=== PATIENT | female | born 1970 | race Caucasian/White ===

== ENCOUNTER → 2016-03-12 | Outpatient (CLI) | payer BC ==
[~2016-03-12] MED LIST: ASPI325T45 PO; ATORVASTATIN PO; BUPR-102 PO; CHOLTAB3 PO; MAGN400T6 PO; PRLSR20 PO
[2016-03-17 11:52] LABS: HERPES SIMPLEX CULT SOURCE GENITAL-VULVA; HERPES SIMPLEX VIRUS CULT NOT ISOLATED (NOT ISOLATED)
== END | disposition home or self-care (01) ==
LOC: C.LABSPEC 16:11
PROVIDERS: ATTEND Obstetrics & Gynecology
DX: N76.2 Acute vulvitis (principal)

== ENCOUNTER → 2016-05-01 | Outpatient (CLI) | payer BC ==
[~2016-05-01] VITALS: Ht 160 cm; Wt 125.5 kg
[2016-05-01 14:22] VITALS: BP 156/93; PULSE 93; Ht 160 cm; Wt 125.5 kg
== END | disposition home or self-care (01) ==
LOC: C.NEUR 13:20
PROVIDERS: ATTEND Internal Medicine Pulmonary Disease
DX: G47.33 Obstructive sleep apnea (adult) (pediatric) (principal)

== ENCOUNTER → 2016-07-15 | Outpatient (CLI) | payer BC ==
--- NOTE | 2016-07-15 16:29 | MAMMOGRAPHY REPORT ---
BILATERAL DIGITAL SCREENING MAMMOGRAM TOMOSYNTHESIS WITH CAD: 07/15/2016 CLINICAL HISTORY: Routine screening. Patient has no complaints. TECHNIQUE: Breast tomosynthesis in addition to standard 2D mammography was performed. Current study was also evaluated with a Computer Aided Detection (CAD) system. COMPARISON: Comparison is made to exams dated: 06/17/2015 mammogram, 06/12/2014 mammogram, 05/17/2013 ma mmogram, and 04/19/2012 mammogram - [facility]. BREAST COMPOSITION: There are scattered areas of fibroglandular density in both breasts. FINDINGS: No suspicious masses, calcifications, or areas of architectural distortion are noted in e ither breast. There has been no significant interval change compared to prior exams. IMPRESSION: ACR BI-RADS CATEGORY 1: NEGATIVE There is no mammographic evidence of malignancy. A 1 year screening mammogram is recommended. The p atient will receive written notification of the results. Approximately 10% of breast cancers are not detected with mammography. A negative mammographic repor t should not delay biopsy if a clinically suggestive mass is present. Stella Coronado M.D. ah/:07/15/2016 15:47:43 Mine Motor Operator: Ashtyn Benson RT(R)(M), [facility] letter sent: Normal 1/2 BI-RADS Code: ACR BI-RADS Category 1: Negative
== END | disposition home or self-care (01) ==
LOC: C.MAMM 14:45
PROVIDERS: ATTEND Internal Medicine
DX: Z12.31 Encounter for screening mammogram for malignant neoplasm of breast (principal)

== ENCOUNTER → 2017-04-01 | Outpatient (CLI) | payer OTHER | END | disposition home or self-care (01) | LOC: C.PAPS 10:19 | PROVIDERS: ATTEND Obstetrics & Gynecology | DX: Z12.4 Encounter for screening for malignant neoplasm of cervix (principal); R87.612 Low grade squamous intraepithelial lesion on cytologic smear of cervix (LGSIL) ==

== ENCOUNTER → 2017-05-03 | Outpatient (CLI) | payer OTHER | END | disposition home or self-care (01) | LOC: C.LABSPEC 17:25 | PROVIDERS: ATTEND Obstetrics & Gynecology | DX: R87.612 Low grade squamous intraepithelial lesion on cytologic smear of cervix (LGSIL) (principal) ==

== ENCOUNTER → 2017-05-06 | Outpatient (CLI) | payer OTHER ==
[~2017-05-06] VITALS: Ht 158.8 cm; Wt 125.0 kg
[2017-05-06 14:10] VITALS: BP 154/90; PULSE 101; Ht 158.8 cm; Wt 125.0 kg
== END | disposition home or self-care (01) ==
LOC: C.NEUR 13:54
PROVIDERS: ATTEND Physician Assistant
DX: G47.33 Obstructive sleep apnea (adult) (pediatric) (principal)

== ENCOUNTER → 2017-09-14 | Outpatient (CLI) | payer OTHER ==
[~2017-09-14] MED LIST changes: +ASPECOTC PO; -ASPI325T45 PO
--- NOTE | 2017-09-15 14:55 | MAMMOGRAPHY REPORT ---
BILATERAL DIGITAL SCREENING MAMMOGRAM TOMOSYNTHESIS WITH CAD: 09/14/2017 CLINICAL HISTORY: Routine screening. TECHNIQUE: The study was acquired using full field digital technology and interpreted from soft copy. Breast tomosynthesis in addition to standard 2D mammography was performed. Current study was also ev aluated with a Computer Aided Detection (CAD) system. COMPARISON: Comparison is made to exams dated: 07/15/2016 mammogram, 06/17/2015 mammogram, 06/12/2014 ma mmogram, 05/17/2013 mammogram, and 04/19/2012 mammogram - [facility]. BREAST COMPOSITION: There are scattered areas of fibroglandular density in both breasts. FINDINGS: There are stable intramammary lymph nodes in each upper outer quadrant. No suspicious mass, architectural distortion or cluster of microcalcifications is seen. IMPRESSION: ACR BI-RADS CATEGORY 1: NEGATIVE There is no mammographic evidence of malignancy. A 1 year screening mammogram is recommended.( 019) The patient will receive written notification of the results. Some breast cancers are not detected with mammography. A negative mammographic report should not isaac y biopsy if a clinically suggestive mass is present. Lois Boogie M.D. ay/:09/14/2017 15:25:30 Residential Field Manager: RT Michelle(Lorie)(M), [facility] letter sent: Normal 1/2 BI-RADS Code: ACR BI-RADS Category 1: Negative
== END ==
LOC: C.MAMM 13:12
PROVIDERS: ATTEND Internal Medicine
DX: Z12.31 Encounter for screening mammogram for malignant neoplasm of breast (principal)

== ENCOUNTER 2020-01-15 17:30 | Inpatient (IN) ==
[2020-01-15 17:55] LABS: Basophils # (auto) 0.03 K/uL (0-0.2); Basophils % (auto) 0.2 %; Eosinophils # (auto) 0.12 K/uL (0-0.5); Eosinophils % (auto) 0.8 %; Hematocrit (blood only) 42.4 % (37-47); Hemoglobin 14.3 g/dL (12.0-16.0); Immature Granulocytes # (auto) 0.07 K/uL (0.00-0.02); Immature Granulocytes % (auto) 0.4 %; Lymphocytes # (auto) 3.81 K/uL (1.2-3.4); Lymphocytes % (auto) 24.4 %; Mean Corpuscular Hemoglobin 30.6 pg (25-34); Mean Corpuscular Hgb Conc 33.7 g/dL (32-36); Mean Corpuscular Volume 90.6 fL (80-100); Mean Platelet Volume 9.4 fL (7.4-10.4); Monocytes # (auto) 0.55 K/uL (0.11-0.59); Monocytes % (auto) 3.5 %; Neutrophils # (auto) 11.06 K/uL (1.4-6.5); Neutrophils % (auto) 70.7 %; Platelet Count 361 K/uL (130-400); RDW Coefficient of Variation 12.7 % (11.5-14.5); RDW Standard Deviation 41.8 fL (36.4-46.3); Red Blood Count 4.68 M/uL (4.2-5.4); White Blood Count 15.64 K/uL (4.8-10.8)
[2020-01-15 18:05] LABS: Partial Thromboplastin Ratio 1.1; Partial Thromboplastin Time 29.9 Seconds (21.0-31.0); Prothrombin Time 10.4 Seconds (9.0-12.0)
[2020-01-15 18:13] LABS: Albumin Level 3.9 gm/dl (3.4-5.0); BUN Creatinine Ratio 14.5 (10-20); Calcium 9.5 mg/dl (8.5-10.1); Creatinine Clr Calc Pharmacy 111.7 ml/min; Est GFR (African American) 98.1; Est GFR (Non-African American) 84.6; Potassium 3.6 mmol/L (3.5-5.1)
--- NOTE | 2020-01-15 18:20 | XRay Report ---
XR chest 1V portable HISTORY: Atypical Chest Pain COMPARISON: None. FINDINGS: The lungs are clear. Cardiac silhouette is normal in size. No pleural effusions. No pneumot horax. IMPRESSION: No acute process. ACT 112: Negative or not required by law. Electronically signed by: Parveen Callejas M.D. 01/15/2020 6:19 PM
[2020-01-15] MEDS ORDERED: ASPIRIN 81 MG CHEW PO STA (18:23)
[2020-01-15 18:24] LABS: Albumin Globulin Ratio 0.9 (0.9-2); Bilirubin,Total 0.4 mg/dl (0.2-1); Globulin 4.2 gm/dl (2.5-4.0); Total Protein 8.1 gm/dl (6.4-8.2); Troponin I 5.17 ng/ml (0-0.045)
--- NOTE | 2020-01-15 18:32 | Emergency Department Note ---
Impression & Plan Chest pain, Non-ST elevation DE (NSTEMI) ED Provider Note Provider: Smith Collins MD DATE OF SERVICE:01/15/2020 CHIEF COMPLAINT: Chest pain HISTORY OF PRESENT ILLNESS: Patient is a 49-year-old female history of COPD, GERD, hyperlipidemia presenting today with complaints of some chest discomfort starting around 8 AM while at rest this morning. Pain in the upper back and mid chest. But shortness of breath at times. Denies abdominal pain or nausea. Denies low back pain to me. Denies trauma. States drinking vision change symptoms too much. She denies a history of somewhat similar pain. Took some Gas-X which did not help with Tylenol that did not help either. Later took some Tums and it improved things. Initially went to urgent care referred here told her EKG was okay here but came here for further evaluation per their recommendation. Patient states initially she had 4-10 chest pain when she arrived but upon my evaluation in the room at approximately 6:18 PM patient sta teri she has 1 out of 10 slight chest discomfort very minimal. States he feels a bit anxious and just want to be sure nothing was okay and she thinks this is just her stomach and anxiety working up. Denies recent travel. Denies recent fever or URI symptoms. Does not normally take aspirin. Pain was not really pleuritic and denies movement or exertion really changed her pain. Was able to go to the store today and walk around and pain was sort of constant all day. REVIEW OF SYSTEMS: A total of 10 review of systems was obtained and negative except as stated above in the HPI. PAST MEDICAL HISTORY: As noted above MEDICATIONS: Reviewed medications with the patient. 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 NECK: Trachea midline. LUNGS: Airway patent. No retractions. Breath sounds clear with good air entry bilaterally. HEART: Regular rate and rhythm. No chest wall tenderness ABDOMEN: Soft and non-tender, without guarding or rebound. SKIN: Acyanotic, warm, dry, without rashes EXTREMITIES: Without swelling, tenderness or deformity with some healing port sites in the right upper shoulder with some slight tenderness but no evidence of significant swelling or erythema here. NEUROLOGICAL: No focal deficits. No aphasia. No facial droop or slurred speech. EK bpm normal sinus without PVC or PAC. There is some slight lateral ST depression as well as inferior ST depressions noted with question of some subtle ST elevation in V1 and V2. New compared to previous from November 15 of this year. EK bpm sinus tachycardia without PVC or PAC. No acute ST segment elevation is noted with some slight inferior ST flattening compared to previous appears somewhat improved regarding the ST segment CONTINUOUS CARDIAC MONITORING: was ordered and showed a heart rate of 112 bpm in sinus tachycardia Patient's laboratory studies and imaging reviewed. Differential includes Cardiac ischemia, aortic dissection, pulmonary embolism, pneumothorax, pneumonia, pericarditis, myocarditis, esophageal rupture, GERD, cholecystitis, pancreatitis, musculoskeletal, as well as other pathologies. IMPRESSION/MEDICAL DECISION MAKING: Patient presents with upper chest pain with some radiation to the upper back present for most of the day. Initially seen in urgent care with reportedly a normal EKG and referred here for further care. Upon my initial evaluation of the patient due to the activity department saw the patient about 6:18 PM and noted first EKG with some concerning changes. Patient states now she had very minimal symptoms at 1 out of 10. Basic lab work was returning at that time and the chest x-ray is being performed as I entered the room. Chest x-ray without evidence of pneumothorax or pneumonia. I doubt this is PE given the clinical history. Doubt dissection given the clinical history. Blood pressure is improving on reassessment here. Lower suspicion for coronavirus at this point. No significant right upper quadrant tenderness and doubt cholecystitis or significant intra-abdominal pathology. Given the concerning EKG a repeat was ordered and she was ordered aspirin. Repeat EKG showed improvement of ischemic findings but discussed with cardiology given story and the initial EKG as well as a elevated troponin of 5. In discussion with of cardiology although the patient's having significant improvement of symptoms compared to earlier, felt that proceeding with emergent cardiac catheterization was warranted given the troponin and EKG changes that been occurring. Per his recommendation heparin bolus and Brilinta was given. The patient was updated. Weight Recorder personnel arrived and patient was taken to the Weight Recorder for further care. DIAGNOSIS: NSTEMI, chest pain DISPOSITION: Taken to the Weight Recorder for further care. Critical Care I have personally spent 31 minutes of critical care time in the direct management of this patient. This includes bedside care, interpretation of diagnostic studies, and testing, discussion with consultants, patient, and family members, and other required patient management activities. These 31 minutes is in excess of all separately billable procedures. Past Med/Surg History Medical History (Updated 01/15/20 @ 18:56 by Smith Collins M.D.) Anxiety Asthma well controlled Depression GERD (gastroesophageal reflux disease) Hyperlipidemia Morbid obesity Pre-diabetes Sleep apnea CPAP Surgical History (Updated 11/28/19 @ 09:33 by Mario Alvarez PA-C) H/O arthroscopy of left knee 02/05/15- Dr. Solorzano History of endometrial ablation History of hysterectomy History of myringotomy WITH TUBES History of tonsillectomy Status post trigger finger release right thumb November 2014- Dr. Sun [place] teeth extracted Family History Grandfather (Maternal) Myocardial infarction Prostate cancer Grandmother (Paternal) Uterine cancer Family/Other Hypertension Father Lung cancer COPD (chronic obstructive pulmonary disease) Emphysema lung Asthma Hypertension Aunt Diabetes Grandmother (Maternal) Diabetes Uncle Prostate cancer Grandfather (Paternal) Stomach cancer Liver cancer Denies family history of Ovarian cancer Breast cancer Colorectal cancer Social History Smoking Status: Former smoker Age Started Using Tobacco: 20; Age Quit Using Tobacco: 45; packs per day: 2.5; Second Hand Exposure: Yes; Hx Alcohol Use: Yes Alcohol type: beer, wine and hard liquor Hx Substance Use: No Preferred Language: Maori Communication Ability: Effective 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 [employer] Runners Required: No Beliefs That Will Affect Care: None marital status: Current Living Situation: Family current occupational status: employed Feels Safe at Home: Yes Dental Care, Regularly: Yes Physical Activity Frequency: Does not Exercise Seatbelt Use: always Sunscreen Use: Yes Assistive Devices: Glasses Allergies Allergies Allergy/AdvReac Type Severity Reaction Status Date / Time azithromycin AdvReac Mild gi symptoms Verified 12/26/19 11:54 Home Meds Home Medications Medication Instructions Recorded Confirmed melatonin 3 mg tablet 10 mg PO HS PRN tab 11/29/18 12/26/19 Amberan 1 cap PO QAM 10/30/19 12/26/19 Breo Ellipta 1 puffs INH QAM 10/30/19 12/26/19 Emergen-C 1,000 ea PO QAM 10/30/19 12/26/19 Hair, Skin, Nails with Biotin 1 tab PO PM 10/30/19 12/26/19 [place] Oil 1 cap PO QAM 10/30/19 12/26/19 apple cider vinegar 600 mg PO PM 10/30/19 12/26/19 chlorhexidine gluconate 15 ml MUCOUS MEMBRANE BID PRN 10/30/19 12/26/19 cholecalciferol (vitamin D3) 125 mcg PO QAM 10/30/19 12/26/19 [Vitamin D3] cranberry 400 mg PO QAM 10/30/19 12/26/19 magnesium 400 mg PO QAM 10/30/19 12/26/19 omeprazole 20 mg PO QAM 10/30/19 12/26/19 rosuvastatin 40 mg PO PM 10/30/19 12/26/19 Previous Rx's Medication Instructions Recorded bupropion HCl 300 mg 24 hr tablet, 300 mg PO QAM #90 tab 05/12/19 extended release oxycodone-acetaminophen [Percocet] 1 tab PO Q6H PRN #30 tab 11/16/19 buspirone 7.5 mg tablet 7.5 mg PO BID #180 tab 12/12/19 Results & Data (ED) Vital Signs Vital Signs - 24 hr 01/15/20 17:31 01/15/20 18:29 01/15/20 18:54 Temperature 36.7 C Temperature Source Oral Pulse Rate 91 H 115 H Pulse Rate [Left Finger] 100 H 108 H Respiratory Rate 20 15 20 Respiratory Effort / Characteristics Non-Labored Respiratory Depth Normal Blood Pressure 188/109 H 152/114 H Blood Pressure [Left Arm] 150/93 H 152/114 H Blood Pressure Mean 135 120 Blood Pressure Mean [Left Arm] 112 126 Pulse Oximetry 95 100 96 Oxygen Delivery Method Room Air Sepsis Recent Fever Within 48 Hours No Sepsis New/Unexplained Change in Mental Status No Sepsis Action Taken by Nursing No Action Required 01/15/20 19:07 Temperature Temperature Source Pulse Rate 106 H Pulse Rate [Left Finger] Respiratory Rate 20 Respiratory Effort / Characteristics Respiratory Depth Blood Pressure Blood Pressure [Left Arm] Blood Pressure Mean Blood Pressure Mean [Left Arm] Pulse Oximetry Oxygen Delivery Method Sepsis Recent Fever Within 48 Hours Sepsis New/Unexplained Change in Mental Status Sepsis Action Taken by Nursing Laboratory Data Result diagrams: 01/15/20 17:47 01/15/20 17:47 Lab Results 01/15/20 01/15/20 01/15/20 Range/Units 17:47 17:47 17:47 WBC 15.64 H (4.8-10.8) K/uL RBC 4.68 (4.2-5.4) M/uL Hgb 14.3 (12.0-16.0) g/dL Hct 42.4 (37-47) % MCV 90.6 (80-100) fL MCH 30.6 (25-34) pg MCHC 33.7 (32-36) g/dL RDW Std Deviation 41.8 (36.4-46.3) fL RDW Coeff of Asa 12.7 (11.5-14.5) % Plt Count 361 (130-400) K/uL MPV 9.4 (7.4-10.4) fL Immature Gran % (Auto) 0.4 % Neut % (Auto) 70.7 % Lymph % (Auto) 24.4 % [place] % (Auto) 3.5 % Eos % (Auto) 0.8 % Baso % (Auto) 0.2 % Neut # (Auto) 11.06 H (1.4-6.5) K/uL Lymph # (Auto) 3.81 H (1.2-3.4) K/uL [place] # (Auto) 0.55 (0.11-0.59) K/uL Eos # (Auto) 0.12 (0-0.5) K/uL Baso # (Auto) 0.03 (0-0.2) K/uL Immature Gran # (Auto) 0.07 H (0.00-0.02) K/uL PT 10.4 (9.0-12.0) Seconds INR 1.0 (0.9-1.1) APTT 29.9 (21.0-31.0) Seconds PTT Ratio 1.1 Activ Coag Time Kaolin (94-140) SECONDS Sodium 138 (136-145) mmol/L Potassium 3.6 (3.5-5.1) mmol/L Chloride 103 (98-107) mmol/L Carbon Dioxide 29 (21-32) mmol/L Anion Gap 5.0 (3-11) BUN 12 (7-18) mg/dl Creatinine 0.82 (0.6-1.2) mg/dl Est Cr Clr Drug Dosing 111.7 ml/min Est GFR ( Amer) 98.1 Est GFR (Non-Af Amer) 84.6 BUN/Creatinine Ratio 14.5 (10-20) Glucose 129 H (70-99) mg/dl Calcium 9.5 (8.5-10.1) mg/dl Total Bilirubin 0.4 (0.2-1) mg/dl AST 32 (15-37) U/L ALT 30 (12-78) U/L Alkaline Phosphatase 105 (45-117) U/L Troponin I 5.170 H* (0-0.045) ng/ml Total Protein 8.1 (6.4-8.2) gm/dl Albumin 3.9 (3.4-5.0) gm/dl Globulin 4.2 H (2.5-4.0) gm/dl Albumin/Globulin Ratio 0.9 (0.9-2) Lipase 144 (73-393) U/L COVID-19 Eval Order SARS-CoV-2, RNA, NAAT (NEGATIVE) 01/15/20 01/15/20 01/15/20 Range/Units 18:51 18:51 20:06 WBC (4.8-10.8) K/uL RBC (4.2-5.4) M/uL Hgb (12.0-16.0) g/dL Hct (37-47) % MCV (80-100) fL MCH (25-34) pg MCHC (32-36) g/dL RDW Std Deviation (36.4-46.3) fL RDW Coeff of Asa (11.5-14.5) % Plt Count (130-400) K/uL MPV (7.4-10.4) fL Immature Gran % (Auto) % Neut % (Auto) % Lymph % (Auto) % [place] % (Auto) % Eos % (Auto) % Baso % (Auto) % Neut # (Auto) (1.4-6.5) K/uL Lymph # (Auto) (1.2-3.4) K/uL [place] # (Auto) (0.11-0.59) K/uL Eos # (Auto) (0-0.5) K/uL Baso # (Auto) (0-0.2) K/uL Immature Gran # (Auto) (0.00-0.02) K/uL PT (9.0-12.0) Seconds INR (0.9-1.1) APTT (21.0-31.0) Seconds PTT Ratio Activ Coag Time Kaolin 235 H (94-140) SECONDS Sodium (136-145) mmol/L Potassium (3.5-5.1) mmol/L Chloride (98-107) mmol/L Carbon Dioxide (21-32) mmol/L Anion Gap (3-11) BUN (7-18) mg/dl Creatinine (0.6-1.2) mg/dl Est Cr Clr Drug Dosing ml/min Est GFR ( Amer) Est GFR (Non-Af Amer) BUN/Creatinine Ratio (10-20) Glucose (70-99) mg/dl Calcium (8.5-10.1) mg/dl Total Bilirubin (0.2-1) mg/dl AST (15-37) U/L ALT (12-78) U/L Alkaline Phosphatase (45-117) U/L Troponin I (0-0.045) ng/ml Total Protein (6.4-8.2) gm/dl Albumin (3.4-5.0) gm/dl Globulin (2.5-4.0) gm/dl Albumin/Globulin Ratio (0.9-2) Lipase (73-393) U/L COVID-19 Eval Order Covid19 [facility]Now [facility] SARS-CoV-2, RNA, NAAT NEGATIVE (NEGATIVE) Administered Medications Discontinued Medications Aspirin (Aspirin 81 Mg Chew) 324 mg PO NOW STA Stop: 01/15/20 18:24 Last Admin: 01/15/20 18:32 Dose: 324 mg Documented by: [id number] Fentanyl Citrate (Fentanyl Citrate 100 Mcg/2 Ml Vial) Confirm Administered Dose 100 mcg .ROUTE .STPrice Squid-MED ONE Stop: 01/15/20 18:59 Last Admin: 01/15/20 20:21 Dose: 100 mcg Documented by: [id number] Heparin Sodium (Porcine) (Heparin Sod (Porcine) 1000 Unit/Ml 10 Ml Vial) 5,000 units IV ONE ONE Stop: 01/15/20 18:36 Last Admin: 01/15/20 18:41 Dose: 5,000 units Documented by: [id number] Cosigned by: [id number] Heparin Sodium (Porcine) (Heparin (Porcine) 1000 Unit/Ml 10 Ml (Weight Recorder Use Only)) Confirm Administered Dose 10,000 units .ROUTE .STK-MED ONE Stop: 01/15/20 18:58 Last Admin: 01/15/20 20:21 Dose: 9,000 units Documented by: [id number] Heparin Sodium/Sodium Chloride (Heparin In Nss Infusion 1000 Unit/500 Ml (2 U/Ml) Bag) Confirm Administered Dose 3,000 units IV .STK-MED ONE Stop: 01/15/20 18:59 Last Admin: 01/15/20 20:21 Dose: 3,000 units Documented by: [id number] Midazolam HCl (Midazolam Hcl 1 Mg/Ml 2ml Vial) Confirm Administered Dose 2 mg .ROUTE .STK-MED ONE Stop: 01/15/20 18:58 Last Admin: 01/15/20 20:21 Dose: 2 mg Documented by: [id number] Midazolam HCl (Midazolam Hcl 1 Mg/Ml 2ml Vial) Confirm Administered Dose 2 mg .ROUTE .STK-MED ONE Stop: 01/15/20 20:09 Last Admin: 01/15/20 20:21 Dose: 1 mg Documented by: [id number] Nicardipine HCl (Nicardipine Hcl Inj 2.5 Mg/Ml 10 Ml Amp) Confirm Administered Dose 25 mg .ROUTE .STK-MED ONE Stop: 01/15/20 18:58 Last Admin: 01/15/20 20:20 Dose: 25 mg Documented by: [id number] Nitroglycerin/Dextrose (Nitroglycerin/D5w 100mcg/Ml 20ml Syr) Confirm Administered Dose 2,000 mcg .ROUTE .STK-MED ONE Stop: 01/15/20 18:59 Last Admin: 01/15/20 20:21 Dose: 2,000 mcg Documented by: [id number] Ticagrelor (Ticagrelor 90 Mg Tab) 180 mg PO ONE STA Stop: 01/15/20 18:36 Last Admin: 01/15/20 18:41 Dose: 180 mg Documented by: [id number] Discharge Plan Visit Data Chief Complaint: Chest Pain Stated Complaint: CHEST PAIN ED Provider: Karina,Smith T Discharge Problem: Chest pain, Non-ST elevation DE (NSTEMI) Patient Disposition: Admitted As Inpatient Discharge Instructions Interventions: ED Discharge Assessment Last Done: 01/15/20 19:15 Discharge Problem: Chest pain Qualifiers: Chest pain type: chest pain due to myocardial ischemia Ischemic chest pain type: unspecified angina pectoris type Qualified Code(s): I25.9 - Chronic ischemic heart disease, unspecified
[2020-01-15] MEDS ORDERED: HEPARIN SOD (PORCINE) 1000 UNIT/ML 10 ML VIAL IV ONE (18:35)
[2020-01-15] MEDS ORDERED: TICAGRELOR 90 MG TAB PO STA (18:35)
[2020-01-15] MEDS ORDERED: MIDAZOLAM HCL 1 MG/ML 2ML VIAL ONE ×2 (18:57→20:08)
[2020-01-15] MEDS ORDERED: niCARdipine HCL INJ 2.5 MG/ML 10 ML AMP ONE (18:57)
[2020-01-15] MEDS ORDERED: HEPARIN (PORCINE) 1000 UNIT/ML 10 ML (CATH LAB USE ONLY) ONE (18:57)
[2020-01-15] MEDS ORDERED: NITROGLYCERIN/D5W 100MCG/ML 20ML SYR ONE (18:58)
[2020-01-15] MEDS ORDERED: fentaNYL citrate 100 MCG/2 ML VIAL ONE (18:58)
--- NOTE | 2020-01-15 19:17 | Pre Anesthesia Assessment ---
Date of Service January 15, 2020 Pre Sedation Assessment Vital Signs Temp Pulse Pulse Resp BP BP Pulse Ox 01/15/20 19:07 106 H 20 01/15/20 18:54 115 H 108 H 20 152/114 H 152/114 H 96 01/15/20 18:29 100 H 15 150/93 H 100 01/15/20 17:31 98.1 F 91 H 20 188/109 H 95 Cardiovascular RRR, no murmur, no edema Respiratory normal respiratory effort, lungs clear to auscultation Pre-Sedation Airway Assessment Smoking Status: Former smoker Hx Sleep Apnea: No Hx Difficult Intubation: No Short, Thick Neck: No Thyromental Distance: > or= 3.5 Finger Breadths Oral Cavity: + WNL Mallampati Class: III ASA: ASA3 Procedure Planning Contraindications for Sedation: none Current Medications Reviewed: Yes Notes The planned sedation has been discussed with the patient. Informed Consent was obtained. I have identified the patient, determined the appropriateness of sedation and have assessed the patient immediately prior to the procedure. All medicine(s) and interventions are by my order.
--- NOTE | 2020-01-15 19:24 | Cardiology Consultation ---
Date of Consultation January 15, 2020 Assessment & Plan (1) Non-ST elevation AR (NSTEMI): Presentation consistent with high risk NSTEMI. With initial subtle anterior elevations on ECG and ongoing chest pain recommend proceeding with urgent cardiac catheterization and likely primary PCI. No apparent contraindications to procedure. Discussed risks, benefits, alternatives of procedure with patient and they are willing to proceed. Given IV heparin and ticagrelor 180 mg in the ED. Further recommendations pending findings of coronary angiography. History of Present Illness History of Present Illness 49-year-old woman here with acute chest pain elevated troponin, abnormal ECG concerning for ACS. Patient seen emergently in the ED after heart alert activated after second ECG and persistent pain. No prior cardiac history. Cardiac risk factors include dyslipidemia, prediabetes, obesity and prior tobacco use. Other medical issues include GERD, asthma, obstructive sleep apnea, depression. Had recent right shoulder surgery. Chest pain began approximately 8 AM while at rest this morning. Pain radiated to her back and was intermittent throughout the day. The pain was her reflux although felt very different than prior discomfort. Initially presented to urgent care before referred to ED. Upon arrival here hypertensive to the 180s. Initial EKG showed subtle anterior ST elevations in V1, V2. Subsequent ECG improved. Troponin elevated at 5. Continue to have 102 chest pain. 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 Quit tobacco 4 years ago. Denies heavy alcohol Allergies Allergy/AdvReac Type Severity Reaction Status Date / Time azithromycin AdvReac Mild gi symptoms Verified 12/26/19 11:54 Home Medications Medication Instructions Recorded Confirmed Type melatonin 3 mg tablet 10 mg PO HS PRN tab 11/29/18 12/26/19 History bupropion HCl 300 mg 24 hr tablet, 300 mg PO QAM #90 tab 05/12/19 12/26/19 Rx extended release Amberan 1 cap PO QAM 10/30/19 12/26/19 History Breo Ellipta 1 puffs INH QAM 10/30/19 12/26/19 History Emergen-C 1,000 ea PO QAM 10/30/19 12/26/19 History Hair, Skin, Nails with Biotin 1 tab PO PM 10/30/19 12/26/19 History [place] Oil 1 cap PO QAM 10/30/19 12/26/19 History apple cider vinegar 600 mg PO PM 10/30/19 12/26/19 History chlorhexidine gluconate 15 ml MUCOUS MEMBRANE BID PRN 10/30/19 12/26/19 History cholecalciferol (vitamin D3) 125 mcg PO QAM 10/30/19 12/26/19 History [Vitamin D3] cranberry 400 mg PO QAM 10/30/19 12/26/19 History magnesium 400 mg PO QAM 10/30/19 12/26/19 History omeprazole 20 mg PO QAM 10/30/19 12/26/19 History rosuvastatin 40 mg PO PM 10/30/19 12/26/19 History oxycodone-acetaminophen [Percocet] 1 tab PO Q6H PRN #30 tab 11/16/19 12/26/19 Rx buspirone 7.5 mg tablet 7.5 mg PO BID #180 tab 12/12/19 12/26/19 Rx Patient History Medical History (Updated 01/15/20 @ 18:56 by Smith Collins M.D.) Anxiety Asthma well controlled Depression GERD (gastroesophageal reflux disease) Hyperlipidemia Morbid obesity Pre-diabetes Sleep apnea CPAP Surgical History (Updated 11/28/19 @ 09:33 by Mario Alvarez PA-C) H/O arthroscopy of left knee 02/05/15- Dr. Solorzano History of endometrial ablation History of hysterectomy History of myringotomy WITH TUBES History of tonsillectomy Status post trigger finger release right thumb November 2014- Dr. Sun [place] teeth extracted Family History Grandfather (Maternal) Myocardial infarction Prostate cancer Grandmother (Paternal) Uterine cancer Family/Other Hypertension Father Lung cancer COPD (chronic obstructive pulmonary disease) Emphysema lung Asthma Hypertension Aunt Diabetes Grandmother (Maternal) Diabetes Uncle Prostate cancer Grandfather (Paternal) Stomach cancer Liver cancer Denies family history of Ovarian cancer Breast cancer Colorectal cancer Social History Smoking Status: Former smoker Age Started Using Tobacco: 20; Age Quit Using Tobacco: 45; packs per day: 2.5; Second Hand Exposure: Yes; Hx Alcohol Use: Yes Alcohol type: beer, wine and hard liquor Hx Substance Use: No Preferred Language: French Communication Ability: 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 Beliefs That Will Affect Care: None marital status: Current Living Situation: Family current occupational status: employed Feels Safe at Home: Yes Dental Care, Regularly: Yes Physical Activity Frequency: Does not Exercise Seatbelt Use: always Sunscreen Use: Yes Assistive Devices: Glasses Review of Systems Review of Systems: Not completed in the setting of emergent situation Physical Exam Physical Exam: General: Anxious HEENT: Sclerae anicteric, mucous membranes moist Lungs: Clear to auscultation bilaterally Cardiac: Tachycardic, regular Abdomen: Soft, nontender Extremities: Warm, well perfused, no edema. 2+ radial pulses Skin: No rashes or lesions. Neuro: Nonfocal Psych: Alert orient x3, normal affect and mood Results & Data ([facility]) Vital Signs (Past 12 Hours) Vital Signs Temp Pulse Pulse Resp BP BP Pulse Ox 01/15/20 19:07 106 H 20 01/15/20 18:54 115 H 108 H 20 152/114 H 152/114 H 96 01/15/20 18:29 100 H 15 150/93 H 100 01/15/20 17:31 98.1 F 91 H 20 188/109 H 95 PG Care Time/CCT Total # of Minutes Spent Total Time Spent with Patient: Total time spent is greater than 50% in coordination of care (as documented) at patient's floor/unit and/or counseling patient: Coding Level of Care Code 76901 Inpt Consult Level 5 Diagnoses Non-ST elevation AR (NSTEMI) I21.4
--- NOTE | 2020-01-15 19:27 | Cardiac Catheterization ---
[facility] Data: [place] [employer] Cardiac Status Clinical evaluation leading to the procedure CAD Presenation: Non STEMI Anginal Classification: CCS IV Heart Failure: No Cardiogenic Shock within 24 Hours: No Cardiac Arrest within 24 Hours: No Imaging Studies Past 6 Months: No Stress Studies Past 6 Months: No Diagnostic Physicians Name: David Ortega MD Status: Urgent Closure Device Percutaneous Entry Location: Radial Closure Device: Radial Band Recommendations: PCI without planned CABG PCI Indication: PCI for high risk Non-KATIA Lesion Segment Name: Proximal LAD Culprit Artery: Yes Stenosis Prior to Rx (%): 95 Chronic Total Occlusion: No IVUS: Yes FFR: No Pre-Procedure CHAN Flow: 2 Previously Treated Lesion: No Lesion Complexity: Non-High/Non-C Lesion Length (mm): 20 Thrombus Present: Yes Bifurcation Lesion: No Guidewire Across Lesion: Stenosis Post-Procedure (%): 0 Post-Procedure CHAN Flow: 3 Devices(s) Deployed: Yes Yes Intraprocedure Events Significant Disection: No Perforation: No Cardiac Cath Procedure Full Procedure Date January 15, 2020 Pre-Procedure Diagnosis Pre-Procedure Diagnosis: Non STEMI AUC Score AUC Score: 8 Post-Procedure Diagnosis Post-Procedure Diagnosis: Severe CAD, Successful PCI and Elevated Intracardiac Pressures Procedure(s) Performed Procedure(s) Performed: Coronary Angiography, Left Heart Cath, Drug Eluting Stent and IVUS Oracle Financial Application Developer David Ortega MD Chef De Cuisine(s) Valeria Estimated Blood Loss Estimated Blood Loss: 15 Medication(s) Medication(s): Fentanyl, Heparin, Lidocaine 1%, Nicardipine, Nitroglycerin and Versed Medication(s): Ticagrelor Summary of Findings Indication: High risk NSTEMI Access: 6 Fr slender right radial artery Catheters: [place], JR4, EBU 3.5 guide Findings: LM -large caliber, luminal irregularities LAD -95% acute, long proximal stenosis midsegment with luminal irregularities, distal vessel tapers prior to apex. Large first diagonal without significant disease. Circumflex -30% ostial stenosis, large high OM1 without significant disease. Mid to distal circumflex without significant disease. RCA -dominant, large caliber, 40% proximal, 30 to 40% mid distal luminal regularities. Large PDA, PLB without significant disease. LVEDP -28 -- PCI -- Antithrombotic therapy: Heparin, ticagrelor Procedure: Left main cannulated with EBU 3.5 guide BMW wire passed across lesion into distal vessel Ruffin IVUS used to assess extent of calcification, length of disease and for vessel sizing. Pullback revealed severe, minimally calcified disease with thrombus extending from near ostium almost to takeoff of D1 (MLA 2.1 mm). Proximal LAD lesion predilated with 2.5 compliant balloon Dilated lesion stented with 3.5 x 22 mm [place] drug-eluting stent Stent post-dilated with 4.0 noncompliant balloon IC vasodilators administered for spasm Repeat IVUS showed well apposed stent, underexpanded in the midsegment. Stent repostdilated with 4.5 NC. Post procedure CHAN 3 flow, stent well expanded with minimal residual stenosis and no apparent cardiac complications. Arterial Closure: TR band Summary: 1. Severe single vessel coronary artery disease -Long 95% acute proximal LAD stenosis 2. Mild to moderate nonculprit CAD 30% ostial circumflex 40% proximal RCA, 30 to 40% mid RCA 3. Elevated intracardiac filling pressure 4. Successful PCI of proximal LAD with single drug-eluting stent (3.5 x 22 mm [place]; postdilated with 4.5 NC). Recommendations: To PCU for continued monitoring Trend troponin until peak, echocardiogram in the a.m. Loaded with ticagrelor 180 mg in [place] [employer] Continue dual-antiplatelet therapy for at least 1 year Continue statin, and ASCVD risk factor modification Consult cardiac Rehab Hemodynamics Rest Ao:: 147/96/120 Final Ao: 136/91/120 LV: 138/28 Recommendations Recommendations: PCI without planned CABG Specimens Specimens: None Radiation Exposure (mGy) 4045 Contrast (mls) 145 Fluids (cc crystalloids) Fluids (cc crystalloids): 194 Drains Drains: None Anesthesia Moderate Procedural Complication(s) None Disposition PCU I attest to the content of the Intraoperative Record and any orders documented therein. Any exceptions are noted below. [facility] Card Cath Procedure Codes Cardiac Catheterization Procedure 1: Cardiovascular Cath Procedures: 42862 Coronaries and LHC (+/-LV) Therapeutic Services & Ancillary Proc Procedure 1: Cardiovascular Tx and Anc Procedures: 50012 IV Ultrasound (Coronary or Graft) Moderate Sedation Procedure 1: Sedation/Anesthesia: 25295 Mod Sedation by the same physician;Init15 Min Child Age 5 & Up Procedure 2: Sedation/Anesthesia: 53070 Mod Sedation by the same physician; Ea [id number] Minutes Stenting Procedure 1: Cardiovascular Stent Procedures: 79297 Perc transcatheter placement of intracoronary stent(s), with ang PG Care Time/CCT Total # of Minutes Spent Total Time Spent with Patient: Total time spent is greater than 50% in coordination of care (as documented) at patient's floor/unit and/or counseling patient:
[2020-01-15] MEDS ORDERED: ACETAMINOPHEN 325 MG TAB PO PRN (20:41)
[2020-01-15] MEDS ORDERED: ONDANSETRON INJ 2 MG/ML 2 ML VIAL IV PRN (20:41)
[2020-01-15] MEDS ORDERED: NITROGLYCERIN SL 0.4 MG/TAB TAB SL PRN (20:41)
[2020-01-15] MEDS ORDERED: lisinopril 5 MG TAB PO SCH (20:45)
[2020-01-15] MEDS ORDERED: METOPROLOL TARTRATE 25 MG TAB PO SCH (21:00)
[2020-01-15] MEDS ORDERED: INFLUENZA VACCINE HIGH DOSE 65+ 0.7 ML SYR IM ONE (21:16)
[2020-01-15] MEDS ORDERED: INFLUENZA ADMINISTRATION CHARGE ONE (21:16)
[2020-01-15] MEDS: ROSUVASTATIN CALCIUM 20 MG TAB PO SCH (22:02)
[2020-01-16] MEDS ORDERED: POTASSIUM CHLORIDE / WTR 10 MEQ/100 ML PLCT IV STA (00:29)
[2020-01-16] MEDS ORDERED: MAGNESIUM SULFATE / D5W 1 GM/100 ML BAG IV ONE (00:29)
[2020-01-16] MEDS ORDERED: SODIUM CHLORIDE 0.9% 1000ML 1,000 ML IV SCH ×2 (00:30→02:00)
[2020-01-16] MEDS ORDERED: ONDANSETRON INJ 2 MG/ML 2 ML VIAL IV STA (00:33)
[2020-01-16] MEDS: POTASSIUM CHLORIDE / WTR 10 MEQ/100 ML PLCT IV SCH ×2 (00:53→01:50)
[2020-01-16] MEDS ORDERED: MELATONIN 3 MG TAB PO PRN (01:05)
[2020-01-16 01:08] LABS: BUN Creatinine Ratio 13.4 (10-20); Calcium 9.2 mg/dl (8.5-10.1); Creatinine Clr Calc Pharmacy 110.6 ml/min; Est GFR (African American) 98.1; Est GFR (Non-African American) 84.6; Magnesium 1.9 mg/dl (1.8-2.4); Potassium 3.9 mmol/L (3.5-5.1)
--- NOTE | 2020-01-16 01:10 | History & Physical Report ---
Date of Service January 16, 2020 Assessment & Plan (1) Non-ST elevation SD (NSTEMI): NSTEMI-patient did require a single drug-eluting stent in the LAD, and was then admitted to telemetry. Post cardiac cath orders per Dr. Ortega included metoprolol tartrate 25 mg p.o. twice daily and lisinopril. Laboratories ordered for the morning Present on Admission?: Yes (2) Obstructive sleep apnea of adult: CPAP at at bedtime as needed Present on Admission?: Yes (3) Prediabetes: On no specific treatment at this time. If her blood sugar is elevated on routine morning labs, will add Accu-Cheks and coverage Present on Admission?: Yes (4) Hypercholesterolemia: Place on high-dose statin, rosuvastatin 40 mg daily in the evening Present on Admission?: Yes (5) GERD without esophagitis: Continue omeprazole 20 mg every morning Present on Admission?: Yes (6) Depression with anxiety: Continue buspirone and bupropion Present on Admission?: Yes (7) Asthma: Continue Breo Ellipta Present on Admission?: Yes (8) Right shoulder pain: Right shoulder pain/AC joint arthritis- Present on Admission?: Yes Admission and Anticipated Discharge Date Admission Date: January 15, 2020 History of Present Illness Chief Complaint: The patient developed acute onset of substernal chest discomfort at 8:00 this morning while at rest, was then seen at a walk-in clinic, who reported she had a normal EKG, but advised that she come to the ED for assessment Primary Care Provider: David Burks MD The patient is a 49-year-old female with a past medical history including morbid obesity, MEL, VAIN I, mood disturbance, prediabetes, hypercholesterolemia, GERD without esophagitis, depression with anxiety, asthma, aortic regurgitation, chronic right shoulder pain, and AC joint arthritis. After arrival to the ED, patient was found to have a troponin of 5, ischemic changes on EKG and chest pain that did improve somewhat but not did not resolve, and after discussion with Dr. Ortega of interventional cardiology, a heart alert was called and patient was taken for emergent cath. Allergies Allergy/AdvReac Type Severity Reaction Status Date / Time azithromycin AdvReac Mild gi symptoms Verified 12/26/19 11:54 Home Medications Medication Instructions Recorded Confirmed Type melatonin 3 mg tablet 10 mg PO HS PRN tab 11/29/18 01/15/20 History bupropion HCl 300 mg 24 hr tablet, 300 mg PO QAM #90 tab 05/12/19 01/15/20 Rx extended release Amberan 1 cap PO QAM 10/30/19 01/15/20 History Breo Ellipta 1 puffs INH QAM 10/30/19 01/15/20 History Emergen-C 1,000 ea PO QAM 10/30/19 01/15/20 History Hair, Skin, Nails with Biotin 1 tab PO PM 10/30/19 01/15/20 History [place] Oil 1 cap PO QAM 10/30/19 01/15/20 History apple cider vinegar 600 mg PO PM 10/30/19 01/15/20 History chlorhexidine gluconate 15 ml MUCOUS MEMBRANE BID PRN 10/30/19 01/15/20 History cholecalciferol (vitamin D3) 125 mcg PO QAM 10/30/19 01/15/20 History [Vitamin D3] cranberry 400 mg PO QAM 10/30/19 01/15/20 History magnesium 400 mg PO QAM 10/30/19 01/15/20 History omeprazole 20 mg PO QAM 10/30/19 01/15/20 History rosuvastatin 40 mg PO PM 10/30/19 01/15/20 History buspirone 15 mg PO QAM 01/15/20 01/15/20 History Past Med/Surg History Medical History (Updated 01/15/20 @ 18:56 by Smith Collins M.D.) Anxiety Asthma well controlled Depression GERD (gastroesophageal reflux disease) Hyperlipidemia Morbid obesity Pre-diabetes Sleep apnea CPAP Surgical History (Updated 11/28/19 @ 09:33 by Mario Alvarez PA-C) H/O arthroscopy of left knee 02/05/15- Dr. Solorzano History of endometrial ablation History of hysterectomy History of myringotomy WITH TUBES History of tonsillectomy Status post trigger finger release right thumb November 2014- Dr. Sun [place] teeth extracted Family History Grandfather (Maternal) Myocardial infarction Prostate cancer Grandmother (Paternal) Uterine cancer Family/Other Hypertension Father Lung cancer COPD (chronic obstructive pulmonary disease) Emphysema lung Asthma Hypertension Aunt Diabetes Grandmother (Maternal) Diabetes Uncle Prostate cancer Grandfather (Paternal) Stomach cancer Liver cancer Denies family history of Ovarian cancer Breast cancer Colorectal cancer Social History Smoking Status: Former smoker Age Started Using Tobacco: 20; Age Quit Using Tobacco: 45; packs per day: 2.5; Smoking End Date: 2015; Second Hand Exposure: Yes; Hx Alcohol Use: Yes Alcohol type: wine and hard liquor Hx Substance Use: No Preferred Language: French Communication Ability: Effective Safety Intern Required: No Beliefs That Will Affect Care: None marital status: Current Living Situation: Family current occupational status: employed Other Information That Helps Us Care for You: No Feels Safe at Home: Yes Safety Concerns: Feels Safe At This Time Dental Care, Regularly: Yes Physical Activity Frequency: Does not Exercise Seatbelt Use: always Sunscreen Use: Yes Assistive Devices: CPAP and Glasses Review of Systems Review of Systems: The patient denies palpitations, cough, lower extremity swelling, sore throat, fevers, chills, sweats, nausea, vomiting, diarrhea , constipation, abdominal pain, pelvic pain, blood in urine or stool, dysuria, urinary frequency or urgency, lightheadedness, dizziness, headache, memory loss, loss of consciousness, rash, abnormal bruising or bleeding, imbalance, focal or generalized weakness, numbness or tingling in arms or legs, generalized arthralgias or myalgias, neck pain, or night sweats. The review of systems is otherwise negative other than for that already noted above, and at least 10 systems have been reviewed. Physical Exam 2 Physical Exam: The patient is awake, alert and oriented 3, well developed and well nourished, normocephalic and atraumatic, lying in bed and in no acute distr ess. HEENT--PERRL, EOMI, mucous membranes and oropharynx dry. Neck--supple. No JVD. No bruits. Thyroid normal, trachea midline, no adenopathy. Heart--normal S1 and S2. No murmurs, rubs or gallops. Lungs--clear bilaterally, no respiratory distress, no accessory muscle use. Abdomen--normal bowel sounds and soft. Nontender. Nondistended. Extremities--no cyanosis or clubbing. No edema. There are good distal pulses b/l. Dermatologic--normal skin turgor, normal color, no abnormal lymph nodes, no rash. Neurologic--cranial nerves II through XII grossly intact. Rheumatologic--normal range of motion. Psychiatric--normal affect. Results & Data Results & Data ([facility]) Vital Signs (Past 12 Hours) Vital Signs Temp Pulse Pulse Resp BP BP Pulse Ox 01/16/20 00:43 98.6 F 83 18 131/88 95 01/15/20 23:42 98.6 F 77 18 105/74 94 01/15/20 22:45 98.8 F 84 20 116/81 94 01/15/20 22:15 85 20 121/74 96 01/15/20 22:10 99.0 F 88 20 168/100 H 96 01/15/20 21:25 98.6 F 93 H 18 124/82 94 01/15/20 21:06 98.6 F 90 16 106/75 94 01/15/20 20:55 90 20 170/110 H 95 01/15/20 20:40 89 20 139/82 94 01/15/20 19:07 106 H 20 01/15/20 18:54 115 H 108 H 20 152/114 H 152/114 H 96 01/15/20 18:29 100 H 15 150/93 H 100 01/15/20 17:31 98.1 F 91 H 20 188/109 H 95 Laboratory Results Laboratory Results WBC 18.54 K/uL (4.8-10.8) H 01/16/20 00:30 RBC 4.48 M/uL (4.2-5.4) 01/16/20 00:30 Hgb 13.8 g/dL (12.0-16.0) 01/16/20 00:30 Hct 41.1 % (37-47) 01/16/20 00:30 MCV 91.7 fL (80-100) 01/16/20 00:30 MCH 30.8 pg (25-34) 01/16/20 00:30 MCHC 33.6 g/dL (32-36) 01/16/20 00:30 RDW Std Deviation 42.9 fL (36.4-46.3) 01/16/20 00:30 RDW Coeff of Asa 12.8 % (11.5-14.5) 01/16/20 00:30 Plt Count 405 K/uL (130-400) H 01/16/20 00:30 MPV 10.1 fL (7.4-10.4) 01/16/20 00:30 Immature Gran % (Auto) 0.3 % 01/16/20 00:30 Neut % (Auto) 58.2 % 01/16/20 00:30 Lymph % (Auto) 35.4 % 01/16/20 00:30 [place] % (Auto) 5.0 % 01/16/20 00:30 Eos % (Auto) 0.9 % 01/16/20 00:30 Baso % (Auto) 0.2 % 01/16/20 00:30 Neut # (Auto) 10.79 K/uL (1.4-6.5) H 01/16/20 00:30 Lymph # (Auto) 6.56 K/uL (1.2-3.4) H 01/16/20 00:30 [place] # (Auto) 0.92 K/uL (0.11-0.59) H 01/16/20 00:30 Eos # (Auto) 0.17 K/uL (0-0.5) 01/16/20 00:30 Baso # (Auto) 0.04 K/uL (0-0.2) 01/16/20 00:30 Immature Gran # (Auto) 0.06 K/uL (0.00-0.02) H 01/16/20 00:30 PT 10.4 Seconds (9.0-12.0) 01/15/20 17:47 INR 1.0 (0.9-1.1) 01/15/20 17:47 APTT 29.9 Seconds (21.0-31.0) 01/15/20 17:47 PTT Ratio 1.1 01/15/20 17:47 Activ Coag Time Kaolin 235 SECONDS (94-140) H 01/15/20 20:06 Sodium 139 mmol/L (136-145) 01/16/20 00:30 Potassium 3.9 mmol/L (3.5-5.1) 01/16/20 00:30 Chloride 106 mmol/L (98-107) 01/16/20 00:30 Carbon Dioxide 27 mmol/L (21-32) 01/16/20 00:30 Anion Gap 6.0 (3-11) 01/16/20 00:30 BUN 11 mg/dl (7-18) 01/16/20 00:30 Creatinine 0.82 mg/dl (0.6-1.2) 01/16/20 00:30 Est Cr Clr Drug Dosing 110.6 ml/min 01/16/20 00:30 Est GFR ( Amer) 98.1 01/16/20 00:30 Est GFR (Non-Af Amer) 84.6 01/16/20 00:30 BUN/Creatinine Ratio 13.4 (10-20) 01/16/20 00:30 Glucose 139 mg/dl (70-99) H 01/16/20 00:30 Calcium 9.2 mg/dl (8.5-10.1) 01/16/20 00:30 Magnesium 1.9 mg/dl (1.8-2.4) 01/16/20 00:30 Total Bilirubin 0.4 mg/dl (0.2-1) 01/15/20 17:47 AST 32 U/L (15-37) 01/15/20 17:47 ALT 30 U/L (12-78) 01/15/20 17:47 Alkaline Phosphatase 105 U/L (45-117) 01/15/20 17:47 Total Creatine Kinase 1620 U/L (26-192) H 01/16/20 00:30 CK-MB (CK-2) 141.7 ng/ml (0.5-3.6) H 01/16/20 00:30 CK/CKMB % Calc 8.7 (0-3.0) H 01/16/20 00:30 Troponin I 30.300 ng/ml (0-0.045) H* 01/16/20 00:30 Total Protein 8.1 gm/dl (6.4-8.2) 01/15/20 17:47 Albumin 3.9 gm/dl (3.4-5.0) 01/15/20 17:47 Globulin 4.2 gm/dl (2.5-4.0) H 01/15/20 17:47 Albumin/Globulin Ratio 0.9 (0.9-2) 01/15/20 17:47 Lipase 144 U/L (73-393) 01/15/20 17:47 COVID-19 [facility] 01/15/20 18:51 SARS-CoV-2, RNA, NAAT NEGATIVE (NEGATIVE) 01/15/20 18:51 Code Status & VTE Plan Code Status Full code VTE Prophylaxis Plan VTE Prophylaxis will be ordered: Yes PG Care Time/CCT Total # of Minutes Spent Total Time Spent with Patient: Total time spent is greater than 50% in coordination of care (as documented) at patient's floor/unit and/or counseling patient: Coding Level of Care Code 31147 OBS Care - Level 3 Diagnoses Non-ST elevation SD (NSTEMI) I21.4 Obstructive sleep apnea of adult G47.33 Prediabetes R73.03 Hypercholesterolemia E78.00 GERD without esophagitis K21.9 Depression with anxiety F41.8 Asthma J45.909 Right shoulder pain M25.511
[2020-01-16 01:26] LABS: Creatine Kinase MB 141.7 ng/ml (0.5-3.6); Troponin I 30.3 ng/ml (0-0.045)
[2020-01-16 01:46] LABS: Hematocrit (blood only) 41.1 % (37-47); Hemoglobin 13.8 g/dL (12.0-16.0); Mean Corpuscular Hemoglobin 30.8 pg (25-34); Mean Corpuscular Volume 91.7 fL (80-100); Mean Platelet Volume 10.1 fL (7.4-10.4); Platelet Count 405 K/uL (130-400); RDW Coefficient of Variation 12.8 % (11.5-14.5); RDW Standard Deviation 42.9 fL (36.4-46.3); Red Blood Count 4.48 M/uL (4.2-5.4); White Blood Count 18.54 K/uL (4.8-10.8)
[2020-01-16] MEDS ORDERED: ICU PROTOCOL FOR HYPERGLYCEMIA PRN (01:55)
[2020-01-16] MEDS ORDERED: ATROPINE SULFATE 0.1 MG/ML 10ML SYR IV STA (01:56)
--- NOTE | 2020-01-16 01:59 | Critical Care Consultation ---
Date of Consultation January 16, 2020 Assessment & Plan (1) Admitted to intensive care unit: Reason Critically Ill: 49-year-old female status post PTCA with JOSE ALFREDO x1 to the LAD in the setting of suspicious ACS findings in the emergency department. Patient with symptomatic bradycardia requiring close hemodynamic monitoring in the ICU. NEURO - * CAM ICU: NEGATIVE * Anxiety/depression * Continue home medications as prescribed. CARDIAC/VASCULAR - * NSTEMI w/ concerns for ACS - s/p PTCA w/ JOSE ALFREDO x1 to the LAD * Without chest pain after procedure. * A.m. echocardiogram ordered. * ASCVD Rx per typical. * Symptomatic bradycardia: * Transient episode with heart rate in the 40s and systolic blood pressures in the 70s. Patient reports feeling presyncopal. No precipitating events noted. * Responded well to IV fluids alone. * Patient did receive initial dose of metoprolol this evening. Patient likely experienced a vagal event with prolonged episode in combination with new medication. * Continue to monitor in the ICU for any dysrhythmias. * Monitor on telemetry. RESPIRATORY - * h/o MEL/Asthma - * Continue w/ home BiPAP settings at night. * Supplemental O2 PRN GI/NUTRITION - * h/o GERD * Continue home Rx RENAL/LYTES - * No significant electrolyte derangements. * IVF: NSS@80mL/hr - * No concerns at this time. ENDO - * No h/o DM or Thyroid Dz * BSGs per unit protocol. ISS --> gtt per unit policy. HEME - * Stable H&H ID - * No concerns for infectious contribution at this time. * COVID-19 Negative LINES/IV ACCESS - * PIVs x2 DVT PROPHYLAXIS - * Hold s/p Heparin/Brilinta * SCDs Thank you for allowing us to participate in the care of this patient. Please refer to my attending physician's documentation for any further recommendations. (2) Symptomatic bradycardia: (3) Non-ST elevation HI (NSTEMI): (4) Chest pain: (5) S/P PTCA (percutaneous transluminal coronary angioplasty): (6) S/P drug eluting coronary stent placement: (7) Morbid obesity: (8) Obstructive sleep apnea of adult: (9) Prediabetes: (10) Hypercholesterolemia: (11) Depression with anxiety: (12) GERD without esophagitis: (13) Asthma: Supervising Physician Co-Signing Physician Notes Patient seen and examined. I agree with JEFF Dobbs note aside for any additions/exceptions noted: Continue usual post NSTEMI care. Echocardiogram completed this morning per Dr. Ortega suggest an EF of 35 to 40%. Dr. Abdi suspects that her ejection fraction will rebound with time. We are going to restart her metoprolol this morning and a lower dose. We are discontinuing IV fluids. She was unable to tolerate the CPAP mask last night. She is going to ask her family to bring in her CPAP mask from home. She notes she has a history of asthma and apparently had a PFT in the past. I am not able to follow-up with PFT in our record. She quit smoking several years ago. She notes that she has been trying to lose weight, but recently had a shoulder surgery and was starting to gain weight again. She has not checked her weight in some time. We discussed weight loss strategies and I encouraged exercise as well. I think she will be stable to be transferred out of the ICU to telemetry later today. History of Present Illness Attending Physician: Pritesh Stallings MD History of Present Illness Patient is a 49-year-old female with a significant past medical history of depression, GERD, hyperlipidemia, MEL, COPD, and obesity who presented to the emergency department this afternoon with complaints of chest discomfort. The patient initially describes her symptoms as similar to heartburn. Initial symptoms were at 8 AM. She took multiple medications without significant relief. She did consult with her sister who works in healthcare and she was directed to a local urgent care for evaluation. Upon assessment there, the patient was directed to the emergency department for further evaluation management. Patient's initial EKG showed some slight ST depressions without significant ST elevation noted. Her chest pressure significantly decreased without intervention while in the emergency department. Troponin was found to be greater than 5. In consultation with cardiology, and given ongoing clinical symptoms concerning for anginal equivalent, the patient was taken to the catheterization suite where she underwent emergent PTCI with findings consistent with a 95% occluded LAD. Patient received 1 drug-eluting stent to the LAD without complication. Patient was completely symptom-free after stenting. Around 1 AM, the patient reportedly became bradycardic and hypotensive. Maribel lo was called to the patient's room. She received IV fluid bolus and was subsequently brought to the ICU for further evaluation management. Electrolytes were being replaced in the process. Upon arrival in the ICU, the patient is awake, alert, and oriented. Heart rate is now in the 80s. Blood pressure has responded appropriately. She denies any return of symptoms which resulted in her presenting to the emergency department. Specifically, the patient denies any complaints of headaches, dizziness, lightheadedness, chest pain, palpitations, shortness of breath, pleuritic pain, abdominal pain, or numbness/weakness to the extremities. She does complain of some slight nausea at this time. Allergies Allergy/AdvReac Type Severity Reaction Status Date / Time azithromycin AdvReac Mild gi symptoms Verified 12/26/19 11:54 Home Medications Medication Instructions Recorded Confirmed Type melatonin 3 mg tablet 10 mg PO HS PRN tab 11/29/18 01/15/20 History bupropion HCl 300 mg 24 hr tablet, 300 mg PO QAM #90 tab 05/12/19 01/15/20 Rx extended release Amberan 1 cap PO QAM 10/30/19 01/15/20 History Breo Ellipta 1 puffs INH QAM 10/30/19 01/15/20 History Emergen-C 1,000 ea PO QAM 10/30/19 01/15/20 History Hair, Skin, Nails with Biotin 1 tab PO PM 10/30/19 01/15/20 History [place] Oil 1 cap PO QAM 10/30/19 01/15/20 History apple cider vinegar 600 mg PO PM 10/30/19 01/15/20 History chlorhexidine gluconate 15 ml MUCOUS MEMBRANE BID PRN 10/30/19 01/15/20 History cholecalciferol (vitamin D3) 125 mcg PO QAM 10/30/19 01/15/20 History [Vitamin D3] cranberry 400 mg PO QAM 10/30/19 01/15/20 History magnesium 400 mg PO QAM 10/30/19 01/15/20 History omeprazole 20 mg PO QAM 10/30/19 01/15/20 History rosuvastatin 40 mg PO PM 10/30/19 01/15/20 History buspirone 15 mg PO QAM 01/15/20 01/15/20 History Patient History Medical History (Updated 01/16/20 @ 03:01 by Florian Dobbs PA-C) Anxiety Asthma well controlled Depression GERD (gastroesophageal reflux disease) Hyperlipidemia Morbid obesity Pre-diabetes Sleep apnea CPAP Surgical History (Updated 01/16/20 @ 03:01 by Florian Dobbs PA-C) H/O arthroscopy of left knee 02/05/15- Dr. Solorzano History of endometrial ablation History of hysterectomy History of myringotomy WITH TUBES History of tonsillectomy Status post trigger finger release right thumb November 2014- Dr. Sun [place] teeth extracted Family History Grandfather (Maternal) Myocardial infarction Prostate cancer Grandmother (Paternal) Uterine cancer Family/Other Hypertension Father Lung cancer COPD (chronic obstructive pulmonary disease) Emphysema lung Asthma Hypertension Aunt Diabetes Grandmother (Maternal) Diabetes Uncle Prostate cancer Grandfather (Paternal) Stomach cancer Liver cancer Denies family history of Ovarian cancer Breast cancer Colorectal cancer Social History Smoking Status: Former smoker Age Started Using Tobacco: 20; Age Quit Using Tobacco: 45; packs per day: 2.5; Smoking End Date: 2015; Second Hand Exposure: Yes; Hx Alcohol Use: Yes Alcohol type: wine and hard liquor Hx Substance Use: No Preferred Language: Maltese Communication Ability: Effective Plaster Caster Required: No Beliefs That Will Affect Care: None marital status: Current Living Situation: Family current occupational status: employed Other Information That Helps Us Care for You: No Feels Safe at Home: Yes Safety Concerns: Feels Safe At This Time Dental Care, Regularly: Yes Physical Activity Frequency: Does not Exercise Seatbelt Use: always Sunscreen Use: Yes Assistive Devices: CPAP and Glasses Review of Systems Review of Systems: A complete 10 point review of systems was reviewed with the patient with pertinent positives and negatives as per history of present illne ss. All else were negative. Physical Exam Physical Exam: VITAL SIGNS - Vital signs and nursing notes were reviewed. GENERAL - 49-year-old female appearing her stated age who is in no acute distress. Communicates well with provider and answers questions appropriately. HEAD - NC/AT. EYES - PERRL with EOMI bilaterally. Sclera anicteric. Palpebral conjunctiva pink and moist with no injection noted. EARS - No deformities of external structures noted on gross examination bilaterally. NOSE - Midline and without cyanosis. No epistaxis or purulent drainage noted. MOUTH/OROPHARYNX - Without perioral cyanosis. Buccal mucosa pink and moist and without leukoplakia. Good dentition noted. NECK - Neck with FROM. Supple to palpation. LUNGS - Chest wall symmetric without accessory muscle use, intercostals retractions, or central cyanosis. Normal vesicular breath sounds CTA B/L. No wheezes, rales, or rhonchi appreciated. CARDIAC - RRR with S1/S2. No murmur, rubs, or gallops appreciated. No reproducible tenderness to palpation appreciated over the anterior chest wall. ABDOMEN - Abdominal contour obese without pulsations or visible masses. BS normoactive all four quadrants. No tenderness, palpable masses, hepatosplenomegaly, or ascites noted. EXTREMITIES - No clubbing or peripheral cyanosis. No pretibial edema present. +3/5 radial and dorsalis pedis pulses palpated throughout. +5/5 strength noted in UE/LE bilaterally. NEUROLOGIC - Cranial nerves II through XII grossly intact. Sensory intact to light touch throughout. PSYCH - A&Ox3 and cooperates fully with examiner. Pt is very pleasant and interacts well with examiner. Results & Data Results & Data ([facility]) Vital Signs (Past 12 Hours) Vital Signs Temp Pulse Pulse Resp BP BP Pulse Ox 01/16/20 01:30 86 18 147/101 H 95 01/16/20 00:55 79 17 127/88 96 01/16/20 00:50 85 18 123/88 97 01/16/20 00:45 83 16 132/95 96 01/16/20 00:43 37.0 C 83 18 131/88 95 01/15/20 23:42 37.0 C 77 18 105/74 94 01/15/20 22:45 37.1 C 84 20 116/81 94 01/15/20 22:15 85 20 121/74 96 01/15/20 22:10 37.2 C 88 20 168/100 H 96 01/15/20 21:25 37.0 C 93 H 18 124/82 94 01/15/20 21:06 37.0 C 90 16 106/75 94 01/15/20 20:55 90 20 170/110 H 95 01/15/20 20:40 89 20 139/82 94 01/15/20 19:07 106 H 20 01/15/20 18:54 115 H 108 H 20 152/114 H 152/114 H 96 01/15/20 18:29 100 H 15 150/93 H 100 01/15/20 17:31 36.7 C 91 H 20 188/109 H 95 Coding Level of Care Code 57997 Inpt Consult Level 5 Diagnoses Admitted to intensive care unit Z78.9 Symptomatic bradycardia R00.1 Non-ST elevation HI (NSTEMI) I21.4 Chest pain I25.9 Chest pain type: chest pain due to myocardial ischemia Ischemic chest pain type: unspecified angina pectoris type S/P PTCA (percutaneous transluminal coronary angioplasty) Z98.61 S/P drug eluting coronary stent placement Z95.5 Morbid obesity E66.01 Obstructive sleep apnea of adult G47.33 Prediabetes R73.03 Hypercholesterolemia E78.00 Depression with anxiety F41.8 GERD without esophagitis K21.9 Asthma J45.909 Time Spent (min) 45 (1) Chest pain Chest pain type: chest pain due to myocardial ischemia Ischemic chest pain type: unspecified angina pectoris type Qualified Code(s): I25.9 - Chronic ischemic heart disease, unspecified
[2020-01-16 02:16] LABS: Mean Corpuscular Hgb Conc 33.6 g/dL (32-36)
[2020-01-16 02:28] LABS: Basophils # (auto) 0.04 K/uL (0-0.2); Basophils % (auto) 0.2 %; Eosinophils # (auto) 0.17 K/uL (0-0.5); Eosinophils % (auto) 0.9 %; Immature Granulocytes # (auto) 0.06 K/uL (0.00-0.02); Immature Granulocytes % (auto) 0.3 %; Lymphocytes # (auto) 6.56 K/uL (1.2-3.4); Lymphocytes % (auto) 35.4 %; Monocytes # (auto) 0.92 K/uL (0.11-0.59); Neutrophils # (auto) 10.79 K/uL (1.4-6.5); Neutrophils % (auto) 58.2 %
[2020-01-16 05:35] LABS: Basophils # (auto) 0.03 K/uL (0-0.2); Basophils % (auto) 0.2 %; Eosinophils # (auto) 0.12 K/uL (0-0.5); Eosinophils % (auto) 0.7 %; Hematocrit (blood only) 42.1 % (37-47); Hemoglobin 14.1 g/dL (12.0-16.0); Immature Granulocytes # (auto) 0.06 K/uL (0.00-0.02); Immature Granulocytes % (auto) 0.4 %; Lymphocytes # (auto) 3.55 K/uL (1.2-3.4); Lymphocytes % (auto) 21.7 %; Mean Corpuscular Hemoglobin 30.8 pg (25-34); Mean Corpuscular Hgb Conc 33.5 g/dL (32-36); Mean Corpuscular Volume 91.9 fL (80-100); Mean Platelet Volume 9.6 fL (7.4-10.4); Monocytes # (auto) 0.72 K/uL (0.11-0.59); Monocytes % (auto) 4.4 %; Neutrophils # (auto) 11.89 K/uL (1.4-6.5); Neutrophils % (auto) 72.6 %; Platelet Count 392 K/uL (130-400); RDW Coefficient of Variation 12.9 % (11.5-14.5); RDW Standard Deviation 43.1 fL (36.4-46.3); Red Blood Count 4.58 M/uL (4.2-5.4); White Blood Count 16.37 K/uL (4.8-10.8)
[2020-01-16 05:56] LABS: Calcium 8.6 mg/dl (8.5-10.1); Creatinine Clr Calc Pharmacy 124.3 ml/min; Est GFR (African American) 112.9; Est GFR (Non-African American) 97.4; Magnesium 2.3 mg/dl (1.8-2.4); Potassium 4.1 mmol/L (3.5-5.1)
[2020-01-16 06:00] LABS: Phosphorus 2.9 mg/dl (2.5-4.9)
[2020-01-16 06:13] LABS: Estimated Average Glucose 108 mg/dl; Hemoglobin A1C 5.4 % (4.5-5.6)
[2020-01-16] MEDS: FLUTICASONE/VILANTEROL 200/25MCG 14 PUFFS/INHALER INH SCH (08:06)
[2020-01-16] MEDS: MAGNESIUM OXIDE 400 MG TAB PO SCH (08:07)
[2020-01-16] MEDS: buPROPion XL 300 MG TABCR PO SCH (08:07)
[2020-01-16] MEDS: PANTOprazole 40 MG TAB PO SCH (08:07)
[2020-01-16] MEDS: CHOLECALCIFEROL 1,000 UNITS 25 MCG TAB PO SCH (08:07)
[2020-01-16] MEDS: busPIRone 7.5 MG TAB PO SCH (08:07)
[2020-01-16] MEDS: ASPIRIN 81 MG ECTAB PO SCH (08:07)
[2020-01-16] MEDS: TICAGRELOR 90 MG TAB PO SCH ×2 (08:08→21:33)
--- NOTE | 2020-01-16 08:23 | XCELERA ---
[id number] \\[id number]_Reports\[id number]
[2020-01-16] MEDS ORDERED: NON-FORMULARY MEDICATION (Omeprazole 20 mg capsule,delayed release(DR/EC)) PO SCH (09:00)
--- NOTE | 2020-01-16 09:00 | Hospitalist Progress Note ---
Date of Service January 16, 2020 Assessment & Plan (1) Non-ST elevation UT (NSTEMI): NSTEMI-patient did require a single drug-eluting stent in the LAD, and was then admitted to telemetry. 2. Moderate LV dysfunction with LAD distribution wall motion abnormality 3. Transient bradycardia/hypotensionlikely vagal episode 4. Dyslipidemia 5. MEL Patient chest pain-free this morning. Troponin peaking No additional bradycardia/hypotension following event around 1 AM yesterday. Description of event sounds vagal in nature Moderate LV dysfunction on echo No signs of heart failure on exam No access site complications. Continue DAPT with aspirin, ticagrelor Start low-dose beta-nelia, MCKAY Continue current statin Appreciate input from cardio. will transfer out of ICU. (2) Obstructive sleep apnea of adult: CPAP at at bedtime as needed (3) Prediabetes: On no specific treatment at this time. If her blood sugar is elevated on routine morning labs, will add Accu-Cheks and coverage (4) Hypercholesterolemia: Place on high-dose statin, rosuvastatin 40 mg daily in the evening (5) GERD without esophagitis: Continue omeprazole 20 mg every morning (6) Depression with anxiety: Continue buspirone and bupropion (7) Asthma: Continue Breo Ellipta (8) Right shoulder pain: Right shoulder pain/AC joint arthritis- Admission and Anticipated Discharge Date Admission Date: January 15, 2020 Subjective Patient reports feeling well. She has no new complaints at this time. Review of Systems Review of Systems: All systems reviewed & are unremarkable except as noted in HPI & below Physical Exam Physical Exam: The patient is awake, alert and oriented 3, well developed and well nourished, normocephalic and atraumatic, lying in bed and in no acute distress. HEENT--PERRL, EOMI, mucous membranes and oropharynx dry. Neck--supple. No JVD. No bruits. Thyroid normal, trachea midline, no adenopathy. Heart--normal S1 and S2. No murmurs, rubs or gallops. Lungs--clear bilaterally, no respiratory distress, no accessory muscle use. Abdomen--normal bowel sounds and soft. Nontender. Nondistended. Extremities--no cyanosis or clubbing. No edema. There are good distal pulses b/l. Dermatologic--normal skin turgor, normal color, no abnormal lymph nodes, no rash. Neurologic--cranial nerves II through XII grossly intact. Rheumatologic--normal range of motion. Psychiatric--normal affect. Results & Data Results & Data ([facility]) Vital Signs (Past 12 Hours) Vital Signs Temp Pulse Pulse Resp BP BP Pulse Ox 01/16/20 08:04 85 16 108/62 92 01/16/20 08:01 36.8 C 01/16/20 06:00 80 24 105/84 99 01/16/20 05:00 82 14 116/82 98 01/16/20 04:00 37.3 C 79 18 125/77 98 01/16/20 03:00 80 16 111/72 98 01/16/20 02:07 85 16 96 01/16/20 02:00 79 21 114/78 93 01/16/20 01:30 86 18 147/101 H 95 01/16/20 00:55 79 17 127/88 96 01/16/20 00:50 85 18 123/88 97 01/16/20 00:45 83 16 132/95 96 01/16/20 00:43 37.0 C 83 18 131/88 95 01/15/20 23:42 37.0 C 77 18 105/74 94 01/15/20 22:45 37.1 C 84 20 116/81 94 01/15/20 22:15 85 20 121/74 96 01/15/20 22:10 37.2 C 88 20 168/100 H 96 01/15/20 21:25 37.0 C 93 H 18 124/82 94 01/15/20 21:06 37.0 C 90 16 106/75 94 PG Care Time/CCT Total # of Minutes Spent Total Time Spent with Patient: Total time spent is greater than 50% in coordination of care (as documented) at patient's floor/unit and/or counseling patient: Coding Level of Care Code 33109 Subseq Hosp Care Lvl 2 Diagnoses Non-ST elevation UT (NSTEMI) I21.4 Obstructive sleep apnea of adult G47.33 Prediabetes R73.03 Hypercholesterolemia E78.00 GERD without esophagitis K21.9 Depression with anxiety F41.8 Asthma J45.909 Right shoulder pain M25.511
--- NOTE | 2020-01-16 09:09 | Cardiology Progress Note ---
Date of Service January 16, 2020 Assessment & Plan (1) Non-ST elevation MA (NSTEMI): Post PCI with single JOSE ALFREDO to proximal LAD 2. Moderate LV dysfunction with LAD distribution wall motion abnormality 3. Transient bradycardia/hypotensionlikely vagal episode 4. Dyslipidemia 5. MEL Patient chest pain-free this morning. Troponin peaking No additional bradycardia/hypotension following event around 1 AM yesterday. Description of event sounds vagal in nature Moderate LV dysfunction on echo No signs of heart failure on exam No access site complications. Continue DAPT with aspirin, ticagrelor Start low-dose beta-nelia, MCKAY Continue current statin From a cardiac standpoint okay with transfer to telemetry today. Possible discharge tomorrow. Admission and Anticipated Discharge Date Admission Date: January 15, 2020 Subjective Episode of bradycardia, hypotension with associated nausea, diaphoresis overnight. No recurrent chest pain. Transferred to ICU. Responded to IV fluids. This morning feeling well. No chest pain, or shortness of breath. Tele reviewed -- no additional events. Echo reviewed -- EF~40%. LAD distribution wall motion abnormality Review of Systems Review of Systems: All systems reviewed & are unremarkable except as noted in HPI & below Physical Exam Physical Exam: General: Comfortable, no acute distress Eyes: Sclerae anicteric, extraocular movements intact HENT: Oropharynx clear mucous membranes moist Lungs: Clear to auscultation bilaterally, no rhonchi or wheezes Cardiac: Regular rate and rhythm, no murmurs Abdomen: Soft, nontender, nondistended, positive bowel sounds. Neuro: Nonfocal Psych: Alert orient x3, normal affect and mood Extremities/Vascular: --Right radial artery access site with no ecchymosis, hematoma. Distal pulse and sensation intact. -- No edema Results & Data ([facility]) Vital Signs (Past 12 Hours) Vital Signs Temp Pulse Pulse Resp BP BP Pulse Ox 01/16/20 08:04 85 16 108/62 92 01/16/20 08:01 98.2 F 01/16/20 06:00 80 24 105/84 99 01/16/20 05:00 82 14 116/82 98 01/16/20 04:00 99.1 F 79 18 125/77 98 01/16/20 03:00 80 16 111/72 98 01/16/20 02:07 85 16 96 01/16/20 02:00 79 21 114/78 93 01/16/20 01:30 86 18 147/101 H 95 01/16/20 00:55 79 17 127/88 96 01/16/20 00:50 85 18 123/88 97 01/16/20 00:45 83 16 132/95 96 01/16/20 00:43 98.6 F 83 18 131/88 95 01/15/20 23:42 98.6 F 77 18 105/74 94 01/15/20 22:45 98.8 F 84 20 116/81 94 01/15/20 22:15 85 20 121/74 96 01/15/20 22:10 99.0 F 88 20 168/100 H 96 01/15/20 21:25 98.6 F 93 H 18 124/82 94 01/15/20 21:06 98.6 F 90 16 106/75 94 PG Care Time/CCT Total # of Minutes Spent Total Time Spent with Patient: Total time spent is greater than 50% in coordination of care (as documented) at patient's floor/unit and/or counseling patient: Coding Level of Care Code 72639 Subseq Hosp Care Lvl 3 Diagnoses Non-ST elevation MA (NSTEMI) I21.4
[2020-01-16] MEDS: METOPROLOL TARTRATE 25 MG TAB PO SCH ×2 (11:01→20:47)
--- NOTE | 2020-01-16 15:22 | Electrocardiogram Report ---
Test Reason : Blood Pressure : / mmHG Vent. Rate : 097 BPM Atrial Rate : 097 BPM P-R Int : 152 ms QRS Dur : 076 ms QT Int : 326 ms P-R-T Axes : 054 049 -09 degrees QTc Int : 414 ms Normal sinus rhythm Abnormal ECG When compared with ECG of 16-NOV-2019 11:08, ST now depressed in Inferior leads T wave inversion now evident in Inferior leads Nonspecific T wave abnormality no longer evident in Lateral leads Confirmed by David Godinez ([id number]) on 01/16/2020 3:22:21 PM Referred By: REFERRED SELF Confirmed By:Neal Godinez
--- NOTE | 2020-01-16 15:24 | Electrocardiogram Report ---
Test Reason : Blood Pressure : / mmHG Vent. Rate : 107 BPM Atrial Rate : 107 BPM P-R Int : 138 ms QRS Dur : 080 ms QT Int : 328 ms P-R-T Axes : 027 044 076 degrees QTc Int : 437 ms Poor data quality, interpretation may be adversely affected Sinus tachycardia Abnormal ECG When compared with ECG of 15-JAN-2020 17:37, (unconfirmed) St segement changes have resolved Confirmed by David Godinez ([id number]) on 01/16/2020 3:24:13 PM Referred By: REFERRED SELF Confirmed By:Neal Godinez
--- NOTE | 2020-01-16 15:26 | Electrocardiogram Report ---
Test Reason : Blood Pressure : / mmHG Vent. Rate : 050 BPM Atrial Rate : 050 BPM P-R Int : 152 ms QRS Dur : 068 ms QT Int : 460 ms P-R-T Axes : 119 076 059 degrees QTc Int : 419 ms Sinus bradycardia Abnormal ECG When compared with ECG of 16-JAN-2020 00:27, (unconfirmed) No significant change was found Confirmed by David Godinez ([id number]) on 01/16/2020 3:26:16 PM Referred By: REFERRED SELF Confirmed By:Neal Godinez
--- NOTE | 2020-01-16 15:36 | Electrocardiogram Report ---
Test Reason : Blood Pressure : / mmHG Vent. Rate : 076 BPM Atrial Rate : 076 BPM P-R Int : 158 ms QRS Dur : 088 ms QT Int : 382 ms P-R-T Axes : 041 077 064 degrees QTc Int : 429 ms Normal sinus rhythm Poor R wave progression, consider anterior HI vs. lead placement vs. LVH Nonspecific ST abnormality Abnormal ECG When compared with ECG of 16-JAN-2020 00:27, (unconfirmed) Vent. rate has increased BY [address] now depressed in Inferior leads Nonspecific T wave abnormality now evident in Anterolateral leads Confirmed by David Godinez ([id number]) on 01/16/2020 3:35:45 PM Referred By: REFERRED SELF Confirmed By:Neal Godinez
[2020-01-16] MEDS: ROSUVASTATIN CALCIUM 20 MG TAB PO SCH (20:48)
[2020-01-17 05:28] LABS: BUN Creatinine Ratio 14.8 (10-20); Calcium 8.4 mg/dl (8.5-10.1); Creatinine Clr Calc Pharmacy 110.6 ml/min; Est GFR (African American) 98.1; Est GFR (Non-African American) 84.6; Potassium 3.9 mmol/L (3.5-5.1)
[2020-01-17] MEDS: PANTOprazole 40 MG TAB PO SCH (07:48)
[2020-01-17] MEDS: buPROPion XL 300 MG TABCR PO SCH (07:48)
[2020-01-17] MEDS: METOPROLOL TARTRATE 25 MG TAB PO SCH (07:48)
[2020-01-17] MEDS: CHOLECALCIFEROL 1,000 UNITS 25 MCG TAB PO SCH (07:48)
[2020-01-17] MEDS: FLUTICASONE/VILANTEROL 200/25MCG 14 PUFFS/INHALER INH SCH (07:49)
[2020-01-17] MEDS: MAGNESIUM OXIDE 400 MG TAB PO SCH (07:49)
[2020-01-17] MEDS: ASPIRIN 81 MG ECTAB PO SCH (07:49)
[2020-01-17] MEDS: busPIRone 7.5 MG TAB PO SCH (07:49)
[2020-01-17] MEDS: TICAGRELOR 90 MG TAB PO SCH (07:49)
--- NOTE | 2020-01-17 09:49 | Cardiology Progress Note ---
Date of Service January 17, 2020 Assessment & Plan (1) Non-ST elevation AL (NSTEMI): Post PCI with single JOSE ALFREDO to proximal LAD 2. Moderate LV dysfunction with LAD distribution wall motion abnormality 3. Transient bradycardia/hypotensionlikely vagal episode 4. Dyslipidemia 5. MEL Patient doing well from a cardiac standpoint. Ok for discharge today. Cardiac meds on discharge: - ASA 81 - Ticagrelor 90mg BID - Toprol XL 25mg daily - Lisinopril 5 mg daily - Continue home crestor. Will consider addition of zetia as an outpatient. Discussed dietary, activity recommendations and cardiac rehab. Follow-up with me in 2 weeks. Repeat Echo as an outpatient Admission and Anticipated Discharge Date Admission Date: January 16, 2020 Subjective Feeling well this morning. No chest pain. Slept better overnight. Tele reviewed -- no additional events. Review of Systems Review of Systems: All systems reviewed & are unremarkable except as noted in HPI & below Physical Exam Physical Exam: General: Comfortable, no acute distress Eyes: Sclerae anicteric, extraocular movements intact HENT: Oropharynx clear mucous membranes moist Lungs: Clear to auscultation bilaterally, no rhonchi or wheezes Cardiac: Regular rate and rhythm, no murmurs Abdomen: Soft, nontender, nondistended, positive bowel sounds. Neuro: Nonfocal Psych: Alert orient x3, normal affect and mood Extremities/Vascular: --Right radial artery access site with no ecchymosis, hematoma. Distal pulse and sensation intact. -- No edema Results & Data ([facility]) Vital Signs (Past 12 Hours) Vital Signs Temp Pulse Resp BP Pulse Ox 01/17/20 08:08 98.2 F 82 16 129/83 98 01/16/20 23:39 97.5 F L 85 18 154/97 H 91 PG Care Time/CCT Total # of Minutes Spent Total Time Spent with Patient: Total time spent is greater than 50% in coordination of care (as documented) at patient's floor/unit and/or counseling patient: Coding Level of Care Code 52145 Subseq Hosp Care Lvl 3 Diagnoses Non-ST elevation AL (NSTEMI) I21.4
[2020-01-17] MEDS ORDERED: lisinopril 5 MG TAB PO SCH (09:50)
[2020-01-18] MEDS ORDERED: METOPROLOL SUCC 25MG EXT REL TAB PO SCH (09:00)
--- NOTE | 2020-01-23 11:02 | Discharge Summary ---
Date of Service January 17, 2020 Admission HPI Per Admitting Provider The patient is a 49-year-old female with a past medical history including morbid obesity, MEL, VAIN I, mood disturbance, prediabetes, hypercholesterolemia, GERD without esophagitis, depression with anxiety, asthma, aortic regurgitation, chronic right shoulder pain, and AC joint arthritis. After arrival to the ED, patient was found to have a troponin of 5, ischemic changes on EKG and chest pain that did improve somewhat but not did not resolve, and after discussion with Dr. Ortega of interventional cardiology, a heart alert was called and patient was taken for emergent cath. Principal Diagnosis NSTEMI Discharge Exam The patient is awake, alert and oriented 3, well developed and well nourished, normocephalic and atraumatic, lying in bed and in no acute distress. HEENT--PERRL, EOMI, mucous membranes and oropharynx dry. Neck--supple. No JVD. No bruits. Thyroid normal, trachea midline, no adenopathy. Heart--normal S1 and S2. No murmurs, rubs or gallops. Lungs--clear bilaterally, no respiratory distress, no accessory muscle use. Abdomen--normal bowel sounds and soft. Nontender. Nondistended. Extremities--no cyanosis or clubbing. No edema. There are good distal pulses b/l. Dermatologic--normal skin turgor, normal color, no abnormal lymph nodes, no rash. Neurologic--cranial nerves II through XII grossly intact. Rheumatologic--normal range of motion. Psychiatric--normal affect. Discharge Data Allergies Allergy/AdvReac Type Severity Reaction Status Date / Time azithromycin AdvReac Mild gi symptoms Verified 01/18/20 14:10 Consultations 01/15/20 20:44 Consult Cardiac Rehabilitation Routine 01/16/20 01:12 Consult Turn Down Worker Routine 01/16/20 09:01 Consult Turn Down Worker Routine Procedures Performed Operation Date: 01/15/20 19:00 Actual Procedures p Aspiration/PCI w/JOSE ALFREDO for Stemi - Mani rOtega MD s Cineradiography w/Routine Exam - Mani Ortega MD s IVUS Coronary Single Vessel - Mani Ortega MD s Cath, Left with Cors and Vent - Mani Ortega MD p Cardiac Heart Alert - Mani Ortega MD Ordered Studies 01/15/20 19:00 CL Cath Imgs for PACS use only Stat 01/15/20 20:37 CL IVUS Coronary Single Vessel Routine Hospital Course (1) Non-ST elevation UT (NSTEMI): NSTEMI-patient did require a single drug-eluting stent in the LAD, and was then admitted to telemetry. 2. Moderate LV dysfunction with LAD distribution wall motion abnormality 3. Transient bradycardia/hypotensionlikely vagal episode 4. Dyslipidemia 5. MEL Patient chest pain-free this morning. Troponin peaking No additional bradycardia/hypotension following event around 1 AM yesterday. Description of event sounds vagal in nature Moderate LV dysfunction on echo No signs of heart failure on exam No access site complications. Cardiac meds on discharge: - ASA 81 - Ticagrelor 90mg BID - Toprol XL 25mg daily - Lisinopril 5 mg daily - Continue home crestor. Will consider addition of zetia as an outpatient. Follow-up with Dr. Ortega in 2 weeks. Repeat Echo as an outpatient (2) Obstructive sleep apnea of adult: CPAP at at bedtime as needed (3) Prediabetes: On no specific treatment at this time. (4) Hypercholesterolemia: Place on high-dose statin, rosuvastatin 40 mg daily in the evening (5) GERD without esophagitis: continue PPI (6) Depression with anxiety: Continue buspirone and bupropion (7) Asthma: Continue Breo Ellipta (8) Right shoulder pain: Right shoulder pain/AC joint arthritis- Total Time Total Time Spent Total Time Spent (In Minutes): 32 Total Time Includes: Examination of the Patient, Discharge Planning and Medication Reconciliation Discharge Plan Discharge Items Patient Disposition: Home - Self-Care Reason For Visit: ACS Discharge Diagnosis: nstemi Activity: Resume your previous activity Non-emergency contact: Primary Care Provider Call non-emergency contact if: you have any medication questions Follow-up/Referrals: Mani Burks MD [Primary Care Provider] - 01/22/20 3:00 pm Diet: Heart Healthy Addtl Attending Provider Instructions: Home Care: * Take your medications exactly as directed. Don't skip doses. * Remember that recovery after a heart attack takes time. Plan to rest for at lease 4-8 weeks while you recover. Then return to normal activity when your doctor says it's okay. * Ask your doctor about joining a heart rehabilitation program. * Tell your doctor if you are feeling depressed. Feelings of sadness are common after a heart attack, but it is important that you speak to someone if you are feeling overwhelmed by these feelings. * If you are having chest pain, call 911 for an ambulance. Do NOT drive yourself to the hospital. * Ask your family members to learn CPR. * Learn to take your own blood pressure and pulse. Keep a record of your results. Ask your doctor when you should seek emergency medical attention. He or she will tell you which blood pressure reading is dangerous. Lifestyle Changes: * Maintain a healthy weight. Get help to lose any extra pounds. * Cut back on salt. * Limit canned, dried, packaged, and fast foods. * Don't add salt to your food. * Season foods with herbs instead of salt when you cook. * Break the smoking habit. Enroll in a stop-smoking program to improve your chances of success. * Limit fatty foods. * Ask your doctor about having your lipid levels checked regularly. * Build up your activity according to your doctor's recommendation. * Ask your doctor when it's okay to resume sexual activity. * Tell your doctor about any erectile dysfunction (ED) medication you are taking. Some ED medications are not safe if you take certain heart medications. * Try to manage stress. Follow Up: It is important for you to keep your follow up appointments with your medical provider. Pending Studies at Discharge: No Stand-Alone Forms: [facility], Smoking Cessation Medications and DC Order Prescriptions: New Brilinta 90 mg Tablet 90 mg PO BID Qty: 60 RF: 0 lisinopril [Zestril] 5 mg Tablet 5 mg PO QAM Qty: 30 RF: 0 metoprolol succinate 25 mg Tablet Extended Release 24 Hr 25 mg PO QAM Qty: 30 RF: 0 aspirin 81 mg Tablet,Delayed Release (Dr/Ec) 81 mg PO QAM Qty: 30 RF: 0 Continued bupropion HCl 300 mg tablet extended release 24 hr 300 mg PO QAM Qty: 90 RF: 3 melatonin 3 mg tablet 10 mg PO HS PRN (Reason: Sleep) RF: 0 buspirone 7.5 mg tablet 15 mg PO QAM RF: 0 Amberan 1 cap PO QAM RF: 0 apple cider vinegar 600 mg Capsule 600 mg PO PM RF: 0 cranberry 400 mg Capsule 400 mg PO QAM RF: 0 magnesium 250 mg Tablet 400 mg PO QAM RF: 0 Emergen-C 1,000 mg Powder Effervescent In Packet 1,000 ea PO QAM RF: 0 cholecalciferol (vitamin D3) [Vitamin D3] 125 mcg (5,000 unit) Tablet 125 mcg PO QAM RF: 0 Hair, Skin, Nails with Biotin 7.5-7.5-1,250 mg-unit-mcg Tablet,Chewable 1 tab PO PM RF: 0 omeprazole 20 mg capsule,delayed release(DR/EC) 20 mg PO QAM RF: 0 rosuvastatin 40 mg tablet 40 mg PO PM RF: 0 chlorhexidine gluconate 0.12 % mouthwash 15 ml mucous membrane BID PRN (Reason: Rash) RF: 0 Breo Ellipta 200-25 mcg/dose blister with device 1 puffs INH QAM RF: 0 Discharge Orders: Discharge Order (Routine); Ordered 01/17/20 Ordered By: Celso Shaw/Other Patient Handouts: Cardiac Catheterization Dc Admission Data Admit Date/Time: 01/16/20 09:01 Attending Provider: Celso Barnes Admit Provider: Mani Ortega Primary Care Provider: Mani Burks Other Providers: Ho Bautista Other Interventions: Discharge Summary Assessment (RN) Last Done: 01/17/20 11:22 Coding Level of Care Code D/C Day Management >30 mins Diagnoses Non-ST elevation UT (NSTEMI) I21.4 Obstructive sleep apnea of adult G47.33 Prediabetes R73.03 Hypercholesterolemia E78.00 GERD without esophagitis K21.9 Depression with anxiety F41.8 Asthma J45.909 Right shoulder pain M25.511
== END 2020-01-17 12:26 | disposition home or self-care (01) | DRG 247 ==
LOC: ED 17:30 → 2S 19:15 → CC 19:15 → SUATTDRO 20:44 → 1E 01-16 00:38